=== PATIENT | female | born 2000 | race African-American/Black ===

== ENCOUNTER 2020-02-13 00:48 | Emergency (ER) | payer MEDICAID ==
[~2020-02-13] VITALS: Ht 165.1 cm; Wt 55.0 kg
[2020-02-13] MEDS ORDERED: KETOROLAC 30 MG/1 ML IVPush ONE (01:00)
--- NOTE | 2020-02-13 01:01 | NUR ---
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 PT REPORTS SOME SOB W/ PAIN. DENIES N/V/D/FEVERS. 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 PT CONNECTED TO ALL MONITORING, VSS, NADN. RESTING ON GURNEY W/ CALL LIGHT IN REACH. IN ROOM FOR ED EVAL.
--- NOTE | 2020-02-13 01:08 | NUR ---
RAD IN ROOM.
[2020-02-13] MEDS ORDERED: KETOROLAC 30 MG/1 ML ONE (01:13)
[2020-02-13 01:31] LABS: BASOPHILS # (AUTO) 0.08 x10^3/uL (0-0.3); BASOPHILS % (AUTO) 1 % (0-1); EOSINOPHILS # (AUTO) 0.03 x10^3/uL (0-0.8); EOSINOPHILS % (AUTO) 1 % (1-7); LYMPHOCYTES # (AUTO) 1.95 x10^3/uL (1-6.1); LYMPHOCYTES % (AUTO) 29 % (22-44); MD NO; MEAN CORPUSCULAR HEMOGLOBIN 31.7 pg (27.0-34.8); MEAN CORPUSCULAR HGB CONC 33.4 g/dL (32.4-35.8); MEAN PLATELET VOLUME 8.6 fL (7.4-10.4); MONOCYTES # (AUTO) 0.41 x10^3/uL (0-1.4); MONOCYTES % (AUTO) 6 % (2-9); NEUTROPHILS # (AUTO) 4.35 x10^3/uL (1.8-8.0); NEUTROPHILS % (AUTO) 64 % (42-75); PLATELET COUNT 360 x10^3/uL (130-400); RED BLOOD COUNT 4.41 x10^6/uL (3.82-5.3)
[2020-02-13 01:40] LABS: ALBUMIN 3.9 g/dL (3.4-5.0); ANION GAP 8 mmol/L (5-15); CALCIUM 8.7 mg/dL (8.5-10.1); CHLORIDE 105 mmol/L (98-107)
[2020-02-13 01:45] LABS: CREATININE 0.83 mg/dL (0.55-1.02); TROPONIN I < 0.015 ng/mL (0.000-0.045)
[2020-02-13 02:16] VITALS: BP 96/60
== END 2020-02-13 02:53 | disposition home or self-care (01) ==
LOC: ED 01:24
DX: R07.89 Other chest pain (principal); R06.02 Shortness of breath
CPT/HCPCS: 36415; 71045; 80048; 82040; 84484; 85025; 93005; 96374; 99285; J1885